=== PATIENT | male | born 1980 | race Caucasian/White ===

== ENCOUNTER 2019-09-20 18:04 | Emergency (ER) | payer MEDICAID ==
[~2019-09-20] VITALS: Ht 175.3 cm; Wt 86.2 kg
[2019-09-20 18:17] VITALS: BP 139/68
--- NOTE | 2019-09-20 18:22 | NUR ---
VA: R 20/40, L 20/20, BOTH EYE 20/13
--- NOTE | 2019-09-20 18:53 | NUR ---
C/O RECURRING ANTERIOR SUPRAUMBILICAL REGION PAIN WITH SEVERE NAUSEA AND UNABLE TO TOLERATE ANY PO'S X 2-3 DAYS---PT IS AWARE SOME FOODS MAKE PAIN WORSE SEEN IN OUR ER THIS PAST SUN FOR SAME COMPLAINT----SENT HOME AFTER PAIN MEDS DENIES RECENT INJURY
--- NOTE | 2019-09-20 19:07 | NUR ---
RECEIVED REPORT FROM SAM FALK FOR CONTINUITY OF CARE.
--- NOTE | 2019-09-20 19:07 | NUR ---
EMIR BORGES AT BEDSIDE.
[2019-09-20] MEDS ORDERED: FLUORESCEIN OPTH STRIP 1 MG OP ONE (19:10)
[2019-09-20] MEDS ORDERED: TETRACAINE HCL/PF 0.5% OPTH 4 ML BTL OP ONE (19:10)
--- NOTE | 2019-09-20 19:23 | NUR ---
VISUAL ACUITY: R 20/25, L 20/20, BOTH 20/15
--- NOTE | 2019-09-20 19:29 | NUR ---
PT SITTING UP RIGHT IN BED. RR EVEN AND UNLABORED. NO NEW CONCERNS AT THIS TIME. BED IN LOWEST POSITION. SIDE RAIL UP X1. WILL CONTINUE TO MONITOR.
[2019-09-20 19:51] VITALS: BP 139/68
--- NOTE | 2019-09-20 19:51 | NUR ---
Patient discharged with v/s stable. Written and verbal after care instructions given and explained. Patient alert, oriented and verbalized understanding of instructions. Ambulatory with steady gait. All questions addressed prior to discharge. ID band removed. Patient advised to follow up with PMD. Rx of VISINE given. Patient educated on indication of medication including possible reaction and side effects. Opportunity to ask questions provided and answered.
== END 2019-09-20 19:50 | disposition home or self-care (01) ==
LOC: MED 18:04
DX: H11.31 Conjunctival hemorrhage, right eye (principal); R03.0 Elevated blood-pressure reading, without diagnosis of hypertension
CPT/HCPCS: 99283